=== PATIENT | male | born 1970 | race Caucasian/White ===

== ENCOUNTER 2019-06-21 09:54 | Emergency (ER) | payer SELFPAY ==
[~2019-06-21] VITALS: Ht 190.5 cm; Wt 108.0 kg
[2019-06-21] MEDS ORDERED: MUPI22OI2 TP (10:14)
[2019-06-21] MEDS ORDERED: DOXY100C2 PO (10:14)
--- NOTE | 2019-06-21 10:14 | PHYS DOC ---
Past History Past Medical History: No Pertinent History Past Surgical History: No Surgical History Alcohol Use: Sober Drug Use: Amphetamine, Marijuana, Methamphetamine General Adult EDM: Chief Complaint: LOWEREXTREMITY INJURY HPI: HPI: Patient is a 49-year-old male who presents to the emergency department for evaluation. He states that 2 days ago, he accidentally cut his left hand, a scrape actually, just overlying and distal to the MCP joint of his left pinky finger. He states over the next 2 days, he developed increasing pain, redness, and swelling at the dorsum of his hand, he has not had any fevers, or chills. Movement and palpation of the affected area worsens his pain, although he is able to fully flex and extend all digits. He also has a small pustular lesion overlying his olecranon which has ruptured and is somewhat caseating. He has not had any continued or significant drainage or swelling in that area. He is uncertain of his last tetanus. He has no other complaints. Review of Systems: Review of Systems: Constitutional: Denies fever or chills Musculoskeletal: Denies back pain or joint pain Integument: Denies rash, other than as noted in the HPI. Neurologic: Denies headache, focal weakness or sensory changes Heart Score: Risk Factors: Risk Factors: DM, Current or recent (<one month) smoker, HTN, HLP, family history of CAD, obesity. Risk Scores: Score 0 - 3: 2.5% MACE over next 6 weeks - Discharge Home Score 4 - 6: 20.3% MACE over next 6 weeks - Admit for Clinical Observation Score 7 - 10: 72.7% MACE over next 6 weeks - Early Invasive Strategies Allergies: Allergies: Allergies Coded Allergies Type Severity Reaction Last Updated Verified No Known Drug Allergies 11/26/13 No Physical Exam: PE: PHYSICAL EXAM: CONSTITUTIONAL: Well developed, well nourished HEAD: normocephalic, atraumatic EENT: PERRL, EOMI. Conjunctivae normal color, sclerae non-icteric; moist mucous membranes. NECK: Supple, non-tender; no meningismus. LUNGS: Lungs CTA, breathing even and unlabored. Normal air movement. HEART: Regular rate and rhythm, no murmur CHEST: No deformity; non-tender ABDOMEN: The abdomen is soft, and non-tender, no masses or bruits. EXTREM: Normal ROM; no deformity, no calf tenderness. Normal pulses palpable in all extremities. There is no pedal edema. On the extensor surface of the left elbow, there is a small pustular lesion which has ruptured, with a somewhat caseating center, without any tenderness, fluctuance, or surrounding erythema. On the dorsum of the left hand, just distal to the MCP joint, at the base of the pinky finger dorsally, there is a healing abrasion, with moderate soft tissue swelling, warmth, and erythema. There is tenderness to palpation in the area of the wound without any definite fluctuance, or drainage. The erythema extends about midway towards the radial aspect of the hand, and about midway proximally towards the wrist. Full range of motion is present in all digits in the hand, including the MCP joints. There is no lymphadenopathy or streaking. SKIN: No rash; no diaphoresis NEURO: Alert; normal speech and cognition; CN's grossly intact; strength grossly intact without focal deficit. BACK: No CVA TTP. EKG: EKG: [] Radiology/Procedures: Radiology/Procedures: [] Course & Med Decision Making: Course & Med Decision Making I discussed importance of close follow-up, home care plan, And return precautions in detail. I Virgen Disclaimer: Virgen Disclaimer: This electronic medical record was generated, in whole or in part, using a voice recognition dictation system. Departure Departure: Impression: Primary Impression: Cellulitis Disposition: 01 HOME/RESIDENCE PRIOR TO ADM Condition: STABLE Patient Instructions: Abrasions, Cellulitis Additional Instructions: Follow-up with orthopedics at [facility], call [phone] to schedule an appointment. Scripts Mupirocin (MUPIROCIN) 22 Gm Oint...g. 1 EDIN TP TID for - for 7 Days, #22 GM Prov: MICHAEL DURAN MD 06/21/19 Doxycycline Hyclate (DOXYCYCLINE HYCLATE) 100 Mg Capsule 1 CAP PO BID for -, #20 CAP Prov: MICHAEL DURAN MD 06/21/19 MICHAEL DURAN MD June 21, 2019 10:14
[2019-06-21] MEDS ORDERED: DIPH,PERTUSS(ACELL),TET VAC/PF 0.5 ML SYRINGE. VAX IM ONE (10:15)
[2019-06-21 10:25] VITALS: BP 159/91
[2019-06-21] MEDS ORDERED: DOXYCYCLINE HYCLATE 100 MG TABLET PO ONE (10:45)
== END 2019-06-21 10:50 | disposition home or self-care (01) ==
LOC: ER 09:54
DX: L03.114 Cellulitis of left upper limb (principal)
CPT/HCPCS: 87040; 90471; 90715; 99283-25